=== PATIENT | male | born 1940 | race Caucasian/White ===

== ENCOUNTER 2020-06-05 13:17 | Outpatient (CLI) | payer OTHER, SELFPAY ==
--- NOTE | 2020-06-05 13:24 | CT_ITS ---
WS: [id number] NONCONTRAST CT LEFT SHOULDER TECHNIQUE: Noncontrast CT left shoulder with coronal and sagittal reformatted images. CLINICAL INFORMATION: pre-operative planning for total shoudler arthroplasty COMPARISON: MRI May 18, 2020 DLP: 2139.[address] scans at [facility] use at least one of these dose optimization techniques: automat ed exposure control; mA and/or kV adjustment per patient size (includes targeted exams where dose is matched to clinical indication); or iterative reconstruction. FINDINGS: Comparison MRI May 18, 2020. Mild degenerative arthritis at the AC joint. Advanced subchondral cy stic change involving the glenoid articulation and humeral head. Complete loss of joint space and bon e-on-bone articulation. Cystic degenerative changes involving the greater tuberosity. Mild degenerati ve arthritis at the AC joint with subchondral cystic change. Mild downsloping of the acromium with mo derate to severe narrowing of the subacromial space. Scapula is normal in appearance. Visualized left ribs are normal. Left lung is well aerated. Degenera tive arthritis glenohumeral joint with hypertrophic spurring along the medial humeral neck. Joint spa ce narrowing with subchondral sclerosis at the glenoid articulation. CT/CT shoulder LT wo con* [id number] IMPRESSION: 1. Mild degenerative arthritis AC joint with mild downsloping of the acromion. Moderate narrowing of the subacromial space. 2. Advanced degenerative arthritis glenohumeral articulation with ufia-vg-zimi articulation and subchondral sclerosis. 3. Subchondral cystic change involving the humeral head and glenoid articulati on. Hypertrophic spurring along the medial humeral neck.
== END 2020-06-05 13:18 | disposition home or self-care (01) ==
LOC: RAD 13:19
PROVIDERS: Family Provider Family Medicine; PCP Family Medicine; Visit Provider Orthopaedic Surgery
DX: Z01.818 Encounter for other preprocedural examination (principal); M19.012 Primary osteoarthritis, left shoulder
CPT/HCPCS: 73200

== ENCOUNTER → 2020-07-02 16:19 | Outpatient (BNVA) | payer OTHER, SELFPAY | PROVIDERS: Family Provider Family Medicine; PCP Family Medicine; Visit Provider Orthopaedic Surgery | DX: Z20.828 Contact with and (suspected) exposure to other viral communicable diseases (principal); Z01.812 Encounter for preprocedural laboratory examination | CPT/HCPCS: 87635 ==

== ENCOUNTER 2020-07-05 11:28 | Outpatient (CLI) | payer OTHER, SELFPAY ==
[2020-07-05 11:21] VITALS: BMI 23.8
--- NOTE | 2020-07-05 11:28 | ECG_ITS ---
[facility] Test Date: 2020-07-05 Pat Name: Con Cisneros Department: Room: Gender: Male Distribution Center Administrator: : 1940 Requested By: Deandra Zhao Order Number: [id number] Herndon MD: Desire Blake M.D. Measurements Intervals [place] Rate: 42 P: OK: QRS: -38 QRSD: 138 T: 66 QT: 448 QTc: 377 Interpretive Statements SINUS BRADYCARDIA WITH 2ND DEGREE AV BLOCK, MOBITZ TYPE II MARKED LEFT AXIS DEVIATION [QRS AXIS < -30] INTRAVENTRICULAR CONDUCTION DELAY [130+ ms QRS DURATION] MODERATE VOLTAGE CRITERIA FOR LVH, CONSIDER NORMAL VARIANT [MEETS CRITERIA IN ONE OF: R(aVL), S(V1), R(V5), R(V5/V6)+S(V1)] No previous ECG available for comparison Electronically Signed On 07-05-2020 21:28:38 ARROW POINT ATTACHER by Desire Blake M.D. [email or web address]/store/[id number]
--- NOTE | 2020-07-05 11:49 | ANES.PREANE2 ---
Pre-Anesthetic Assessment Pre-Anesthetic Assessment: Height/Weight: Height 1.85 m Weight 82.1 kg Preop Diagnosis: Osteoarthritis left shoulder Proposed Procedure: Operation Date: 07/09/20 07:00 Proposed Procedures p Total Shoulder Arthroplasty 17708 M19.012(Left) - Minesh Lebron MD Familial anesthetic complications: None Social: Social History: No alcohol and No tobacco Airway: Cervical ROM: WNL MP: 3 Dentition: Full Pulmonary: Comments: dry cough at night from allergies - several years (comes and goes) CV/HEM: CV/HEM: HTN GI: GI: GERD Anesthetic Plan: ASA status: 2 Anesthesia: General and Regional (specify below) Risk of > 500 ml blood loss (7ml/kg in children): No Other Pertinent Information: Patient had distinct dropped beat with his first EKG (Mobitz type II). Patient states he has no heart problems, but given advanced degree of block, we will have cardiology evaluate him before surgery to avoid risk of extensive vagal pause PFSH Anesthesia PFSH: Social History (Updated 07/05/20 @ 11:20 by Gita Olea) Smoking and tobacco status: former smoker Quit status (tobacco): has quit using tobacco Alcohol intake: never Data Anesthesia Cardiac Studies: No Data to Display
--- NOTE | 2020-07-05 11:57 | ECG_ITS ---
[facility] Test Date: 2020-07-05 Pat Name: Con Cisneros Department: Room: Gender: Male Health Care Recruiter: : 1940 Requested By: Deandra Zhao Order Number: [id number] Herndon MD: Desire Blake M.D. Measurements Intervals [place] Rate: 43 P: 213 FL: 204 QRS: -36 QRSD: 127 T: 67 QT: 454 QTc: 387 Interpretive Statements SINUS BRADYCARDIA MARKED LEFT AXIS DEVIATION [QRS AXIS < -30] MODERATE INTRAVENTRICULAR CONDUCTION DELAY [105+ ms QRS DURATION, 80+ ms Q/S IN V1/V2, NO Q AND 60+ ms R IN I/aVL/V5/V6] MODERATE VOLTAGE CRITERIA FOR LVH, CONSIDER NORMAL VARIANT [MEETS CRITERIA IN ONE OF: R(aVL), S(V1), R(V5), R(V5/V6)+S(V1)] NONSPECIFIC T-WAVE ABNORMALITY Compared to ECG 07/05/2020 11:41:27 T-wave abnormality now present Electronically Signed On 07-05-2020 21:24:59 PHONE TRIAGE SPECIALIST by Desire Blake M.D. [email or web address] specialty hospitalThe Bucket BBQsamaritan north [facility] center.[employer]/store/NU/[id number] prasad
== END 2020-07-05 11:29 | disposition home or self-care (01) ==
LOC: OPS 04-17 14:41
PROVIDERS: PCP Family Medicine; Visit Provider Orthopaedic Surgery
DX: Z01.818 Encounter for other preprocedural examination (principal)
CPT/HCPCS: 93005

== ENCOUNTER 2020-08-23 08:41 | Outpatient (CLI) | payer OTHER, SELFPAY ==
[2020-08-23 09:00] VITALS: BMI 23.6
--- NOTE | 2020-08-23 09:01 | ECG_ITS ---
[facility] Test Date: 2020-08-23 Pat Name: Con Cisneros Department: Room: Gender: Male Scheduler: : 1940 Requested By: Miryam Alcantar Order Number: [id number] Katrina MD: Miryam Alcantar M.D. Interpretive Statements NAME OF STUDY: LEXISCAN SESTAMIBI STRESS TEST INDICATION: Chest Pain, PROCEDURE: At the baseline, the EKG revealed sinus bradycardia with a rate of 56 bpm. Poor R wave progression. Possible old septal DC. Left axis deviation.. The baseline blood pressure was 176/89 mm Hg with a heart rate of 56 beats/min. Lexiscan was infused over a period of 20 seconds. A total of 0.4 milligrams of Lexiscan was infused. The stress phase was continued for a total of 5 minutes. Heart rate at the end of the stress phase was 61 with a blood pressure 152/78. The EKG at the peak infusion revealed no significant changes. Sestamibi was injected 20 seconds after the Lexiscan infusion. Blood pressure at the end of the recovery phase was 154/74 with a heart rate of 61 per minute. CONCLUSION: 1. No significant EKG changes with the LexiScan infusion 2. No LexiScan induced chest pain or cardiac arrhythmia 3. Normal blood pressure and heart rate response 4. Sestamibi/sestamibi perfusion scan pending; see separate report. Electronically Signed On 08-24-2020 12:27:21 MANAGER MULTIMEDIA by Miryam Alcantar M.D. [email or web address] [email or web address].Detectent/store/[id number]
--- NOTE | 2020-08-23 09:02 | NMCV_ITS ---
NM debbie perf SPECT r/s* [id number] Con Cisneros Age: 80 Gender: M : 1940 Exam Date: 08/23/2020 09:58 Ordering Phys: Miryam Alcantar MD ([email or web address]) Technologist: LAMONT Bird Exam Location: [facility] Indications: CHEST PAIN STRESS TEST Please [facility] separate [facility] for full findings IMAGE PROTOCOL Rest/Stress 1 Lexiscan Day Radiopharmaceutical Dose (mCi) Administration Site Administered by Rest: Tc-99m 10.7 IV LAMONT Benitez Sestamibi Stress:Tc-99m 32.8 IV LAMONT Benitez Sestamibi Rest: 23-Aug-2020 60 Discovery 630 Stress: 23-Aug-2020 30 Discovery 630 0.4mg Lexiscan. Supine position only as patient was unable to lay prone. SPECT RESULTS Technical Quality: Excellent Raw Data Analysis: Normal Image Corrections: No attenuation or motion correction applied Summed Stress Score: 3 Summed Rest Score: 13 Summed Difference Score: 0 PERFUSION FINDINGS Moderate area of severely creases uptake in the basal, mid and apical inferior wall segments with no significant reversibility. Patchy areas of decreased tracer uptake also noted in the apical segments with no significant reversibility. FUNCTIONAL RESULTS (calculated via Gated SPECT) Stress Image LV EF (%): 78 Stress EDV (mL):81 TID: 0.85 Stress ESV (mL):18 FUNCTIONAL FINDINGS: Segmental wall motion analysis revealing no gross wall motion normalities. IMPRESSIONS 1. Myocardial perfusion imaging revealing areas of persistent decreased tracer uptake in the inferior and apical regions, suggestive of myocardial scarring versus attenuation artifact. 2. Normal LV ejection fraction 78%. 3. LV wall motion analysis revealing no gross wall motion normalities. 4. Normal LV volume. No significant coronary ischemia, based on the above findings. No similar previous studies are available for comparison Dr Miryam Alcantar MD [facility] (Electronically Signed) Final Date: 23 August 2020 15:54 S
[2020-08-23] MEDS: regadenoson 0.4 Mg/5 ml Syringe IVP (10:52)
[2020-08-23 10:58] VITALS: BP 152/77; PULSE 61
== END 2020-08-23 08:42 | disposition home or self-care (01) ==
LOC: CDL 08:43
PROVIDERS: PCP Family Medicine; Visit Provider Internal Medicine Cardiovascular Disease
DX: R07.9 Chest pain, unspecified (principal)
CPT/HCPCS: 78452; 93017; A9500; J2785

== ENCOUNTER 2020-08-23 08:46 | Outpatient (CLI) | payer OTHER, SELFPAY ==
--- NOTE | 2020-08-23 13:30 | USCV_ITS ---
Con Cisneros Age: 80 Gender: M : 1940 Exam Date: 08/23/2020 09:07 Ordering Phys: Miryam Alcantar MD ([email or web address]) Technologist: Millicent Yarbrough Exam Location: [facility] [place], [place] Indication: OTHER CHEST PAIN BP: 146 / 67 HR: 51 Rhythm: Sinus Technical Quality: Adequate MEASUREMENTS (Male / Female) Normal Values 2D ECHO LV Diastolic Diameter PLAX 4.2 cm 4.2 - 5.9 / 3.9 - 5.3 cm LV Systolic Diameter PLAX 2.8 cm LV Chamber Size 2.4 cm IVS Diastolic Thickness 1.2 cm 0.6 - 1.0 / 0.6 - 0.9 cm IVS Systolic Thickness 1.9 cm LVPW Diastolic Thickness 1.7 cm 0.6 - 1.0 / 0.6 - 0.9 cm LVPW Systolic Thickness 1.9 cm RV Chamber Size 2.5 cm LVOT Diameter 2.0 cm LV Ejection Fraction 2D Teich 61.9 % LV Ejection Fraction MOD 2C 40.5 % LV Ejection Fraction 2C AL 40.6 % LA Diameter 3.3 cm LA Width 3.1 cm LA Height 4.2 cm RA Width 3.1 cm RA Height 4.1 cm Aorta at Sinotubular Diameter 2.8 cm M-MODE LV Diastolic Diameter MM 5.3 cm 4.2 - 5.9 / 3.9 - 5.3 cm LV Systolic Diameter MM 2.9 cm LV Ejection Fraction MM Teich 76.3 % IVS Diastolic Thickness MM 1.1 cm 0.6 - 1.0 / 0.6 - 0.9 cm IVS Systolic Thickness MM 1.4 cm LVPW Diastolic Thickness MM 0.9 cm 0.6 - 1.0 / 0.6 - 0.9 cm LVPW Systolic Thickness MM 1.6 cm Aortic Annulus Diameter 3.1 cm LA Ao Ratio MM 1.2 MV E Point Septal Separation 0.5 cm DOPPLER AV Peak Velocity 118.0 cm/s LVOT Peak Velocity 87.0 cm/s AV Area Cont Eq vti 2.7 cm squared AV Area Cont Eq pk 2.3 cm squared MV Area PHT 2.4 cm squared Mitral E to A Ratio 0.7 MV E' Velocity 31.5 cm/s Mitral E to MV E' Ratio 6.5 Mitral E to LV E' Lateral Ratio 5.7 Mitral E to LV E' Septal Ratio 7.5 TR Peak Velocity 122.3 cm/s TR Peak Gradient 6.0 mmHg TV Peak E Velocity 73.0 cm/s Right Atrial Pressure 3.0 mmHg Pulmonary Artery Systolic Pressu 9.0 mmHg PV Peak Velocity 80.0 cm/s RV Acceleration Time 0.1 s RV Ejection Time 0.3 s RV AcT/ET 0.2 FINDINGS Left Ventricle Normal left ventricular size and systolic function, EF 55 %. Mild left ventricular hypertrophy. No regional wall motion abnormalities. Grade I/IV diastolic dysfunction (abnormal relaxation filling pattern), normal to mildly elevated filling pressures. Right Ventricle Normal right ventricular size and systolic function. Right Atrium The right atrium is normal in size. Left Atrium The left atrium is normal in size. Mitral Valve Trace mitral valve regurgitation. Aortic Valve Thickened aortic valve. Tricuspid Valve No gross abnormalities noted Pulmonic Valve No gross abnormalities noted Pericardium Normal pericardium without effusion. Aorta Minimal plaques in the ascending aorta CONCLUSIONS Normal left ventricular size and systolic function, EF 55 %. Mild left ventricular hypertrophy. No regional wall motion abnormalities. Grade I/IV diastolic dysfunction (abnormal relaxation filling pattern), normal to mildly elevated filling pressures. Thickened aortic valve. Trace mitral valve regurgitation. There is no pericardial effusion. There are no intracardiac masses. No previous study is available for comparison. Dr Miryam Alcantar MD [facility] (Electronically Signed) Final Date: 23 August 2020 16:07 S
== END 2020-08-23 08:47 | disposition home or self-care (01) ==
LOC: RAD 08:47
PROVIDERS: PCP Family Medicine; Visit Provider Internal Medicine Cardiovascular Disease
DX: R07.89 Other chest pain (principal); I08.0 Rheumatic disorders of both mitral and aortic valves
CPT/HCPCS: 93306

== ENCOUNTER → 2020-09-06 | Day surgery (SDC) | payer OTHER, SELFPAY | PROVIDERS: PCP Family Medicine; Visit Provider Orthopaedic Surgery | DX: R06.02 Shortness of breath (principal); R94.31 Abnormal electrocardiogram [ECG] [EKG] | CPT/HCPCS: 93005 ==

== ENCOUNTER 2020-09-17 14:49 | Inpatient (IN) | payer OTHER, SELFPAY ==
[2020-09-06 13:15] VITALS: BMI 23.6
--- NOTE | 2020-09-06 13:20 | ECG_ITS ---
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 Measurements Intervals [place] Rate: 49 P: 23 UT: 213 QRS: -37 QRSD: 134 T: 70 QT: 437 QTc: 396 Interpretive Statements SINUS BRADYCARDIA WITH FIRST DEGREE AV BLOCK MARKED LEFT AXIS DEVIATION [QRS AXIS < -30] INTRAVENTRICULAR CONDUCTION DELAY [130+ ms QRS DURATION] POSSIBLE LEFT VENTRICULAR HYPERTROPHY [VOLTAGE CRITERIA PLUS LAE OR QRS WIDENING] Compared to ECG 07/05/2020 11:59:29 First degree AV block now present T-wave abnormality no longer present Electronically Signed On 09-06-2020 16:01:04 WEAVER APPRENTICE by Meño Tinoco M.D. [email or web address].[email or web address] Cryptographyprov[facility].[employer]ic [employer]/store/[id number]
--- NOTE | 2020-09-06 17:00 | ANES.PREANE2 ---
Pre-Anesthetic Assessment Pre-Anesthetic Assessment: Height/Weight: Height 1.85 m Weight 81.193 kg Preop Diagnosis: Osteoarthritis left shoulder Proposed Procedure: Operation Date: 09/17/20 12:30 Proposed Procedures p Total Shoulder Arthroplasty 46328 M19.012(Left) - Minesh Lebron MD Was Beta Dada taken within 24 hours: N/A Social: Social History: No alcohol and No tobacco Exam: Pre-Anes Outpt Exam: alert, oriented x 3, clear to auscultation bilaterally and regular rate & rhythm Airway: Submandibular: WNL Cervical ROM: WNL MP: 2 Dentition: Full CV/HEM: CV/HEM: HTN Anesthetic Plan: ASA status: 3 Anesthesia: General and Regional (specify below) (interscalene blk) Risk of > 500 ml blood loss (7ml/kg in children): No PFSH Anesthesia PFSH: Medical History Abnormal EKG Allergic rhinitis Dyslipidemia History of vertigo Hypertension Major depressive disorder Male erectile dysfunction Prediabetes Solitary pulmonary nodule Surgical History History of repair of ACL History of tonsillectomy and adenoidectomy Hx of appendectomy Hx of elbow surgery Hx of inguinal hernia surgery Family History Grandfather Cancer Mother Dementia Brother Cancer Denies family history of Diabetes CAD (coronary artery disease) Clotting disorder Chronic kidney disease (CKD) Suicide Anesthesia complication Bleeding disorder Lung disease Stroke Social History Smoking and tobacco status: former smoker Quit status (tobacco): has quit using tobacco Alcohol intake: never Data Anesthesia Cardiac Studies: No Data to Display
[2020-09-17] VITALS (19 sets, daily range): BP systolic 106–181; BP diastolic 47–93; PULSE 45–58; RESP 14–22; TEMP 36.1–36.5; O2SAT 95–100
[2020-09-17] MEDS: oxyCODONE 20 mg ER (12 HR) Tablet PO (10:21)
[2020-09-17] MEDS: acetaminophen 500 mg Tablet 1000 MG PO ×2 (10:21→17:15)
[2020-09-17] MEDS: CELEcoxib 200 mg Capsule 400 MG PO (10:21)
[2020-09-17] MEDS: gabapentin 300 mg Capsule PO (10:22)
[2020-09-17] MEDS: sodium chloride 0.9% 1,000 ML 30 ML IV (10:47)
--- NOTE | 2020-09-17 11:11 | P.ANESUD_ITS ---
Pre-Anesthetic Update Pre-Anesthetic Assessment: Date of Surgery/Procedure: 09/17/20 Preop [place] gnosis: Osteoarthritis left shoulder Proposed Procedure: Operation Date: 09/17/20 12:15 Proposed Procedures p Total Shoulder Arthroplasty 12716 M19.012(Left) - Minesh Lebron MD Any changes to Pre-Anesthetic Assessment?: No Last Intake: Intake Last Liquid Date 09/16/20 Last Liquid Time 18:00 Last Solid Date 09/16/20 Last Solid Time 18:00 Vitals: Temperature 97.6 F 09/17/20 10:25 Temperature Source Temporal Artery S can 09/17/20 10:25 Pulse Rate 55 L 09/17/20 10:25 Respiratory Rate 18 09/17/20 10:25 Blood Pressure 171/93 09/17/20 10:25 Blood Pressure Rose Mary n 119 09/17/20 10:25 Pulse Oximetry 98 09/17/20 10:25 Oxygen Delivery Me thod 09/17/20 10:25 Exam: Pre-Anes Outpt Exam: alert, oriented x 3, clear to auscultation bilaterally and regular rate & rhythm Cardiac Studies: No Data to Display
[2020-09-17] MEDS: midazolam 1 mg/mL INJ 2 mL 2 MG IVP (11:30)
--- NOTE | 2020-09-17 11:32 | W.PM.OPSFHP ---
Same Day Surgery H&P Indication for Procedure/HPI DATE OF PROCEDURE: September 17, 2020 CHIEF COMPLAINT/INDICATIONFOR SURGICAL PROCEDURE: Right shoulder pain with poor function. Scheduled right total shoulder arthroplasty. PREOP DIAGNOSIS: Osteoarthritis left shoulder PLANNED PROCEDRUE: Operation Date: 09/17/20 12:15 Proposed Procedures p Total Shoulder Arthroplasty 17690 M19.012(Left) - Minesh Lebron MD Medications/Allergies* Home Medications Medication Instructions Recorded Confirmed Type amlodipine 2.5 mg PO DAILY 07/05/20 09/06/20 History melatonin 3 mg capsule 3 mg PO DAILY 08/07/20 09/06/20 History Allergies/Adverse Reactions Allergy/AdvReac Type Severity Reaction Status Date / Time No Known Allergies Allergy Verified 09/06/20 13:18 Current Medications: Generic Name Dose Route Start Last Admin Trade Name Freq PRN Reason Stop Dose Admin Sodium Chloride 1,000 mls @ 30 mls/hr 09/17/20 10:15 09/17/20 10:47 Sodium Chloride 0.9% IV 09/18/20 10:14 30 mls/hr .Q24H DAVE Administration Pertinent History/Comorbid Conditions* Medical History (Updated 08/07/20 @ 20:40 by Miryam Alcantar MD) Abnormal EKG Allergic rhinitis Dyslipidemia History of vertigo Hypertension Major depressive disorder Male erectile dysfunction Prediabetes Solitary pulmonary nodule Surgical History (Updated 08/07/20 @ 15:56 by Miryam Alcantar MD) History of repair of ACL History of tonsillectomy and adenoidectomy Hx of appendectomy Hx of elbow surgery Hx of inguinal hernia surgery Family History (Updated 08/07/20 @ 15:26 by Chelle Simmons RN) Dementia Mother Cancer Grandfather Brother Denies family history of Diabetes CAD (coronary artery disease) Clotting disorder Chronic kidney disease (CKD) Suicide Anesthesia complication Bleeding disorder Lung disease Stroke Social History Smoking and tobacco status: former smoker Quit status (tobacco): has quit using tobacco Alcohol intake: never Pertinent Exam Findings alert, oriented x 3, clear to auscultation bilaterally, regular rate & rhythm and operative site marked Recommendations Surgery/Procedure today Coding Level of Care Code Acute Merchandise Appraiser for Chioma Syed
--- NOTE | 2020-09-17 11:47 | ANES.PROC ---
Anesthesia Procedures Procedure/Date: 09/17/20 Nerve Block ^: Nerve Block 1: Main Anesthesia: general anesthesia Time Out Performed: Yes Consent: requested by attending/covering physician, from patient, risks and benefits reviewed and patient agrees to proceed Nerve block location: interscalene (left) Anesthesia monitors applied: pulse oximetry, EKG, BP cuff and oxygen Nerve block position: supine Anesthetic Used: ropivicaine 0.5% Amount of anesthesia used (mL): 30 Ultrasound used to: recognize landmarks Nerve Stimulator Used?: No Interscalene/Femoral BLK: 2 stimuplex 22 g needle used for position and inplane approach Injection: neg aspiration of heme Patient Tolerated Procedure: well Complications: none
[2020-09-17] MEDS: EPINEPHrine 1 mg/mL INJ XX (12:34)
--- NOTE | 2020-09-17 15:10 | P.OP_ITS ---
Operative Report Date of procedure: September 17, 2020 Pre-op Diagnosis: Osteoarthritis left shoulder Post-op diagnosis: same Post-op Findings: Same Procedure Done: Left total shoulder Implants: Tornier Aequalis Ascend Flex size 5B stem, Aqualis 37m30cb high offset stem, large 40 cortiloc glenoid Pathology: none sent Surgeon: Minesh Lebron Anesthesia: General and Nerve Block (Interscalene) Estimated blood loss (mL): 200 Complications: None Findings: The patient had severe degenerative changes of the humeral head and glenoid. He had fairly concentric wear of his glenoid. He had some flattening of the humeral head and large inferior osteophytes Condition: stable Disposition: PACU Procedure: The patient was having an interscalene block in holding. He was taken to the operating room and given 2 g of Ancef and 1 g of tranexamic acid. He was positioned in the beachchair position with his left shoulder exposed. Initially a 8 cm long incision was made just lateral to the deltopectoral groove. The deltopectoral interval was entered identified beneath the medial flap and cephalic vein taken with the deltoid and displaced laterally. Retaining tractors could then be placed beneath the conjoined tendon and deltoid allowing access to the subscapularis. The biceps tendon was identified and elevated off the lesser tuberosity. Split was carried the rotator interval in line with the biceps. The shoulder could then be easily dislocated. A free cut in approximately 30 degrees of retroversion was made with the oscillating saw at roughty 137.5 degree neck angle canal finder was used to find the canal and sequential reaming accomplished up to a size 6.. As broaching was accomplished a size 5 broach seemed to provide's secure stability with a B neck angle providing best seating.. The humeral head protector was placed. Retractors were placed about the glenoid and labral remnants are removed. A guidepin was placed centrally. The glenoid was reamed down to subchondral bone. The 3 peripheral peg holes were placed. A trial reduction with the large 40 glenoid was accomplished with the 54 x 18 high offset head with adequate stability noted. The glenoid was irrigated with saline and peg holes packed with epinephrine soaked sponges. It was placed at each of the 3 peripheral peg holes. The final glenoid was then cemented into place. The humeral head was then press-fit into place. The humeral head was reduced. 2 Ultratape sutures were then passed from the dorsal aspect of the subscapularis to the articular aspect with a small Krak?w stitch exiting again through the superior aspect of the subscapularis. Each one of the sutures was passed across the greater tuberosity with free needle. Each suture was passed through a small 4-hole mini frag plate and secured drawing the subscapularis up over the lesser tuberosity in a pants over vest fashion. The sutures were then brought back over the scab Subscapularis grabbing the distal tendon and in the subscapularis over the footprint on the lesser tuberosity. 2 Ethibond sutures were passed in the rotator interval. There was some devitalized muscle along the edge of the deltoid which was removed with scissors. The deltopectoral interval was closed with 0 Vicryl suture. Deep tissues were closed with 2-0 Vicryl suture the skin was closed with a running 3- 0 Stratafix suture. Skin edges were comfortable with covered with Dermabond. Sterile dressings were applied. Patient was placed in a sling, extubated, and taken recovery room in stable condition.
--- NOTE | 2020-09-17 15:10 | XR_ITS ---
WS: [id number] Exam: XR shoulder LT min 2V* [id number] Date/Time of Exam: 09/17/2020 3:10 PM Reason For Exam: Left total shoulder Comparison 03/26/2020. A left shoulder prosthesis has been placed and appears to be in satisfactory alignment. Postoperative changes in the adjacent soft tissues.
--- NOTE | 2020-09-17 15:33 | SUR.PHASEI ---
PT CONTINUES TO SLEEP WITH ORAL AIRWAY IN PLACE, MANUAL ASSIST UNTIL NOW TO KEEP AIRWAY OPEN, X RAYS DONE WITH DR LEBLANC AT BEDSIDE, LT SHOULDER DRESSING D/I FIRST ICE TO SITE, SLING IN PLACE DISTAL LT HAND PINK WARM WITH STRONG PULSE NOTED AT SLOW RATE, PT MONIOR SB AT 45-47 RATE, WITH 1ST DEGREE BLOCK, NO DISTRESS NOTED VSS
--- NOTE | 2020-09-17 15:37 | SUR.PHASEI ---
PT AWAKES TO VOICE, ORAL AIRWAY OUT PT NODS HEAD NO TO PAIN QUESTION THEN QUICKLY BACK TO SLEEP VSS NO DISTRESS NOTED.
--- NOTE | 2020-09-17 16:35 | ANE.PACU2 ---
Inpatient post-anesthesia follow up: Airway intact: Yes Vital signs: Temperature 97.4 F Pulse Rate 48 Respiratory Rate 18 Blood Pressure 160/67 Pulse Oximetry 99 Oxygen Delivery Me thod Nasal Cannula Oxygen Flow Rate 3 Fraction of Inspir ed Oxygen Hydration adequate: Yes Nausea and vomiting: No Pain level: 1 Mental status: Baseline
[2020-09-17] MEDS: mupirocin oint 22 gm 1 APPLIC TOPICAL (17:15)
[2020-09-17] MEDS: CELEcoxib 200 mg Capsule PO (17:16)
[2020-09-17] MEDS: sodium chloride 0.9% 1,000 ML 80 ML IV (17:16)
[2020-09-17] MEDS: ceFAZolin 1,000 MG in sodium chloride 0.9% (plus) 50 ML 100 MG IV (20:32)
[2020-09-18] MEDS: acetaminophen 500 mg Tablet 1000 MG PO ×2 (03:04→10:20)
[2020-09-18 04:00] VITALS: BP 172/73; PULSE 58; RESP 18; TEMP 36.6; O2SAT 95
[2020-09-18] MEDS: ceFAZolin 1,000 MG in sodium chloride 0.9% (plus) 50 ML 100 MG IV (04:15)
--- NOTE | 2020-09-18 07:07 | PC.NURSE ---
Report to Rangel OLGUIN at this time.
[2020-09-18 07:48] VITALS: BP 160/74; PULSE 61; RESP 20; TEMP 36.8; O2SAT 96
--- NOTE | 2020-09-18 07:57 | P.DS_ITS ---
Discharge Providers Date of Admission: 09/17/20 14:49 Date of Discharge: September 18, 2020 Attending Provider at Admission: Minesh Lebron MD Attending Provider at Discharge: Minesh Lebron MD Primary Care Provider: Jeremías Bangura Diagnoses at Discharge Discharge Diagnosis (1) Status post shoulder replacement: Status: Acute (2) Osteoarthritis of right shoulder: Status: Resolved Reason for Visit Reason for Visit: primary osteoarthristis left shoulder Hospital Course Hospital Course The patient was admitted to the hospital after an elective left total shoulder arthroplasty. Postoperatively he did very well. He had very little pain. Occupational therapy began instructing him in a home exercise program for her shoulder. Physical therapy again ambulating him. He was managed with the aspirin and sequential compression dressings for DVT prophylaxis. By the first postoperative day he was thought stable for reduced Physical Exam Narrative: EXAM NARRATIVE: Left shoulder incision is clean and dry. He will fire his deltoid and his biceps and has no distal motor deficits. His sensation is intact in the left arm. Discharge Data Data Completed and Pending: Completed Studies During Hospitalization Category Date Time Status XR shoulder LT mi n 2V* [id number] Routin e Exams 09/17/20 15:10 Completed Vitals: Last Vital Signs Temp 98.2 F 09/18/20 07:48 Pulse 61 09/18/20 07:48 Resp 20 H 09/18/20 07:48 BP 160/74 09/18/20 07:48 Pulse Ox 96 09/18/20 07:48 Discharge Plan Discharge Patient Disposition: Home Condition: Stable Prescriptions: New oxycodone 5 mg Tablet 5 - 10 mg PO Q4H PRN (Reason: Moderate To Severe Pain) 7 Days Qty: 30 RF: 0 acetaminophen 500 mg Tablet 500 mg PO Q8H PRN (Reason: Pain) 14 Days Qty: 42 RF: 0 celecoxib 200 mg Capsule 200 mg PO BID 14 Days Qty: 28 RF: 0 aspirin 325 mg Tablet,Delayed Release (Dr/Ec) 325 mg PO DAILY 30 Days Qty: 30 RF: 0 Discontinued mupirocin 2 % ointment 1 applic topical BID Qty: 22 RF: 0 No Action melatonin 3 mg capsule 3 mg PO DAILY RF: 0 amlodipine 2.5 mg Tablet 2.5 mg PO DAILY RF: 0 Discharge Orders: Discharge Order (Routine); Ordered 09/18/20 Ordered By: Minesh Lebron Referrals: Minesh Lebron MD [Physician] - 10/02/20 2:15 pm Discharge Diet: Advance as tolerated Discharge Activity: Limit activity as instructed Activity Restrictions/Additional Instructions: May remove shoulder dressing in 48 hours and applied Band-Aids as necessary May shower once incisions free of drainage. Leave arm in sling/immobilizer at all times except when showering or performing exercises. Avoiding any active use of the left shoulder. Exercises per occupational therapy. May remove sling for exercises Pendulum exercises to shoulder Active range of motion to elbow wrist and hand May apply cold compression as necessary for pain and swelling Take Celebrex twice a day for the next 15 days for pain , discontinue other anti-inflammatories Take Neurontin twice a day for 7 days. Take Tylenol 500mg as needed 3 times a day for mild pain take oxycodone for breakthrough pain. 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
[2020-09-18] MEDS: CELEcoxib 200 mg Capsule PO (08:39)
[2020-09-18] MEDS: mupirocin oint 22 gm 1 APPLIC TOPICAL (08:39)
[2020-09-18] MEDS: aspirin 325 mg EC Tablet PO (08:39)
[2020-09-18] MEDS: amlodipine 5 mg Tablet 2.5 MG PO (08:39)
--- NOTE | 2020-09-18 10:03 | PC.CHAP ---
Pastoral Care Encounter/Spiritual Assessment Type of Contact [] Declined director religious education visit [] Patient/Family/Request visit [] Outpatient visit [] Follow-up visit [] Physician referral [] Code/Alert [X] Routine visit [] Staff referral [] Actively dying [X] Patient sleeping [] Family support [] [] Out of room [] Palliative care [] [] Receiving care in room [] Pre-surgical visit [] Trauma [] Long length of stay [] ICU visit [] Other: Relational/Emotional Strength [] Patient feels connected with others/family/visitors/staff [] Distress [] Loneliness/isolation [] Abandonment Spirituality of Patient [] Person of Magdalena [] Attends Buddhism of their [place]dal[place] [] Believes in Prayer [] Reads Bible or Worship materials [] There are Spiritual issues to be addressed Bookkeeping Machine Mechanic Interventions [] Prayer [] Active listening [] Non-anxious presence [] Spiritual/emotional support [] Crisis/trauma care [] Spiritual counseling [] Bereavement support [] Provided bereavement packet [] Provided Bible/devotional materials [] Provided toy/stuffed animal, coloring book to patient or family member [] Provided Communion [] Anointing/[place] [] Salvation [] Completed spiritual assessment [] Other: Impact on Illness or Injury [] Angry [] Fearful [] Anxious [] Often cries [] Exhaustion [] Unable to work [] Unable to attend nondenominational [] Unable to walk/stand [] Unable to read [] Unable to drive [] Unable to eat/drink [] Unable to sleep [] Unable to be with family [] Patient intubated [] Other: Summary Time spent with patient
[2020-09-18 10:21] VITALS: RESP 18
[2020-09-18] MEDS: oxyCODONE 5 mg IR Tab/Cap PO (10:21)
[2020-09-18 11:29] VITALS: BP 164/63; PULSE 64; RESP 17; TEMP 36.8; O2SAT 96
[2020-09-18 12:07] VITALS: BP 164/63; PULSE 64; RESP 17; TEMP 36.8; O2SAT 96
== END 2020-09-18 12:09 | disposition home or self-care (01) | DRG 483 ==
LOC: MEDSURG 15:43
PROVIDERS: Admitting Provider Orthopaedic Surgery; PCP Family Medicine; Visit Provider Orthopaedic Surgery
PROC: 0RRK0JZ Replacement of Left Shoulder Joint with Synthetic Substitute, Open Approach (ICD-10-PCS; CPT 23472; principal; 2020-09-17 12:00)
DX: M19.012 Primary osteoarthritis, left shoulder (principal); E78.5 Hyperlipidemia, unspecified; I10 Essential (primary) hypertension; F32.9 Major depressive disorder, single episode, unspecified; N52.9 Male erectile dysfunction, unspecified; R73.03 Prediabetes; R91.8 Other nonspecific abnormal finding of lung field; Z87.891 Personal history of nicotine dependence
CPT/HCPCS: 73030; 96374; 97110; 97161; 97166; C1776; J0171; J0690; J1580; J2250; J2704; J2795; J7030

== ENCOUNTER → 2020-10-30 14:11 | Outpatient (BNVA) | payer OTHER, SELFPAY | PROVIDERS: PCP Family Medicine; Visit Provider Orthopaedic Surgery | DX: Z48.89 Encounter for other specified surgical aftercare (principal); Z96.619 Presence of unspecified artificial shoulder joint | CPT/HCPCS: 73030 ==

== ENCOUNTER → 2020-11-19 15:07 | Outpatient (BNVA) | payer OTHER, SELFPAY | PROVIDERS: PCP Family Medicine; Visit Provider Orthopaedic Surgery | DX: Z96.612 Presence of left artificial shoulder joint (principal); M25.512 Pain in left shoulder | CPT/HCPCS: 73030 ==

== ENCOUNTER → 2023-07-02 15:15 | Outpatient (BNVA) | payer OTHER, SELFPAY | PROVIDERS: PCP Family Medicine; Visit Provider Dermatology | DX: D48.5 Neoplasm of uncertain behavior of skin (principal); L82.1 Other seborrheic keratosis; L57.8 Other skin changes due to chronic exposure to nonionizing radiation; L57.0 Actinic keratosis; L82.0 Inflamed seborrheic keratosis; L81.4 Other melanin hyperpigmentation | CPT/HCPCS: 11102; 17000; 17110; 99203 ==

== ENCOUNTER → 2023-10-21 16:04 | Outpatient (BNVA) | payer OTHER, SELFPAY | PROVIDERS: PCP Family Medicine; Visit Provider Specialist | DX: M17.0 Bilateral primary osteoarthritis of knee | CPT/HCPCS: 73560; 73565; 99204 ==